=== PATIENT | female | born 2000 | race Caucasian/White ===

== ENCOUNTER 2021-06-07 13:28 | Outpatient (CLI) | payer OTHER, SELFPAY ==
[2021-06-07 14:57] LABS: Beta HCG Quantitative < 2.39 mIU/ML
== END 2021-06-07 13:29 | disposition home or self-care (01) ==
LOC: ANHLAB 13:37
PROVIDERS: PCP Obstetrics & Gynecology; Visit Provider Obstetrics & Gynecology
DX: N92.6 Irregular menstruation, unspecified (principal)
CPT/HCPCS: 36415; 84702